=== PATIENT | male | born 1995 | race Hispanic/Latino ===

== ENCOUNTER 2018-08-11 11:04 | Outpatient (CLI) | payer OTHER ==
--- NOTE | 2018-08-11 19:22 | RAD ---
RIGHT WRIST THREE VIEWS: 08/11/2018 FINDINGS: No fracture, dislocation, or acute bony change is seen. The carpal bones all appear normal. IMPRESSION: No acute bony finding. POS: HOME
--- NOTE | 2018-08-11 19:22 | RAD ---
RIGHT SHOULDER THREE VIEWS: 08/11/2018 FINDINGS: No fracture, dislocation, or AC joint widening is seen. IMPRESSION: No acute finding. POS: HOME
== END 2018-08-11 11:05 | disposition home or self-care (01) ==
LOC: BURRAD 11:04
PROVIDERS: ATTEND Physician Assistant
DX: M25.531 Pain in right wrist (principal); M25.511 Pain in right shoulder